=== PATIENT | female | born 1995 | race Caucasian/White ===

== ENCOUNTER 2016-05-13 02:10 | Emergency (ER) | payer BC, OTHER ==
[2016-05-13 02:19] VITALS: PULSE 69; RESP 16; TEMP 98.7
[2016-05-13] MEDS ORDERED: IBUPROFEN 600 MG TAB PO STA (02:29)
--- NOTE | 2016-05-13 02:31 | ED ---
General Adult HPI - General Chief complaint: ENT Stated complaint: Arm/Chest/Back Pain Time Seen by Provider: 05/13/16 02:22 Source: patient, RN notes reviewed Mode of arrival: ambulatory Limitations: no limitations - History of Present Illness Initial comments: Patient 20-year-old female with no significant past medical history, who presents emergency room today with chief complaint of bilateral ear pain over the last 4 days. Does admit that her upper arms up and sore over the last 2 days. She states feels muscular worse with certain movements. She states approximately 2 hours ago began feeling some pain in her upper back and chest area. She can states that these pains again feel muscular to herself. She states they are worse with certain movements and on palpation. She denies any other complaints or symptoms. Patient denies any recent fever, chills, shortness of breath, abdominal pain, nausea or vomiting, numbness or tingling, dysuria or hematuria, constipation or diarrhea, headaches or visual changes, or any other complaints. - Related Data Previous Rx's Medication Instructions Recorded Ibuprofen [Motrin] 600 mg PO Q6HR PRN #30 day 05/13/16 Allergies Allergy/AdvReac Type Severity Reaction Status Date / Time amoxicillin Allergy Rash/Hives Verified 05/13/16 02:20 Review of Systems ROS Statement: Those systems with pertinent positive or pertinent negative responses have been documented in the HPI. ROS Other: All systems not noted in ROS Statement are negative. Past Medical History Past Medical History: No Reported History History of Any Multi-Drug Resistant Organisms: None Reported Past Surgical History: No Surgical Hx Reported Past Psychological History: Anxiety, Depression Smoking Status: Never smoker Past Alcohol Use History: Rare Past Drug Use History: None Reported General Exam - General Exam Comments Initial Comments: General: The patient is awake and alert, in no distress, and does not appear acutely ill. Eye: Pupils are equal, round and reactive to light, extra-ocular movements are intact. No nystagmus. There is normal conjunctiva bilaterally. No signs of icterus. Ears, nose, mouth and throat: There are moist mucous membranes and no oral lesions. Neck: The neck is supple, there is no tenderness or JVD. Cardiovascular: There is a regular rate and rhythm. No murmur, rub or gallop is appreciated. Chest pain reproduced on palpation of the anterior chest wall. Respiratory: Lungs are clear to auscultation, respirations are non-labored, breath sounds are equal. No wheezes, stridor, rales, or rhonchi. Musculoskeletal: Normal ROM, no appearance of thoracic, lumbar spine. No tenderness over the spinous processes. Patient has mild tenderness to the upper back generally on exam. Strength 5/5. Sensation intact. Pulses equal bilaterally 2+. Neurological: A&O x 3. CN II-XII intact, There are no obvious motor or sensory deficits. Coordination appears grossly intact. Speech is normal. Skin: Skin is warm and dry and no rashes or lesions are noted. Psychiatric: Cooperative, appropriate mood & affect, normal judgment. Limitations: no limitations Course Vital Signs 05/13/16 02:15 Temperature 98.7 F Pulse Rate 69 Respiratory 16 Rate Blood Pressure 110/66 O2 Sat by Pulse 97 Oximetry EKG Findings - EKG Comments: EKG Findings:: EKG performed at 0238: Shows sinus bradycardia at 57 bpm. NH interval 164. QRS is 84. QT/QTc 426/414. No acute ST changes. Medical Decision Making - Medical Decision Making Case discussed in detail with attending physician Dr. Smith. Patient reexamined at this time shows no signs of distress. Her labs been reviewed and shows negative influenza. Negative chest x-ray. EKG shows sinus bradycardia otherwise normal EKG. Patient's pain improved after ibuprofen here in the emergency room. Chest pain back pain reproducible on palpation on initial exam is feeling better after ibuprofen. Vitals are stable. At this time patient will be discharged home advised to follow-up family doctor over the next 2 days and continue ibuprofen as needed for pain. Advised return here the emergency room if any symptoms increase or worsen or for any other concerns. - Lab Data Lab Results 05/13/16 Range/Units 02:41 Influenza Type A RNA Not Detected (Not Detectd) Influenza Type B (PCR) Not Detected (Not Detectd) Disposition Clinical Impression: Viral syndrome Disposition: HOME SELF-CARE Condition: Good Instructions: Viral Syndrome (ED) Additional Instructions: Please continue ibuprofen as needed for pain. Please follow-up family doctor over the next 2 days. Please change the emergency room if any symptoms increase or worsen or for any other concerns. Prescriptions: Ibuprofen [Motrin] 600 mg PO Q6HR PRN #30 day PRN Reason: Pain Time of Disposition: 03:31
--- NOTE | 2016-05-13 02:58 | XR ---
EXAMINATION TYPE: XR chest 2V DATE OF EXAM: 05/13/2016 2:51 AM COMPARISON: NONE HISTORY: Cough TECHNIQUE: Frontal and lateral views of the chest are obtained. FINDINGS: Heart and mediastinum are normal. Lungs are clear. Diaphragm is normal. Bony thorax and so ft tissues appear normal. IMPRESSION: Normal chest
[2016-05-13 03:45] VITALS: BP 112/66
== END 2016-05-13 03:44 | disposition home or self-care (01) ==
LOC: EC 02:10
DX: B34.9 Viral infection, unspecified (principal); R00.1 Bradycardia, unspecified
CPT/HCPCS: 71020; 87502; 93005; 99285

== ENCOUNTER 2016-12-23 02:21 | Observation (INO) | payer BC ==
[2016-12-23] MEDS ORDERED: LORazepam 2 MG/ML INJ IV STA (02:43)
[2016-12-23] MEDS ORDERED: SODIUM CHLORIDE 0.9% 1,000 ML IV STA (02:43)
--- NOTE | 2016-12-23 03:04 | ED ---
Seizure HPI - General Chief Complaint: Seizure Stated Complaint: seizure Time Seen by Provider: 12/23/16 02:24 Source: patient, EMS Mode of arrival: EMS Limitations: no limitations - History of Present Illness Initial Comments: 21 years old female his seizure tonight, seizure was witnessed by her boyfriend , boyfriend is a RN he noticed seizure lasted for 30 seconds there was no tonic- clonic, she bit her tongue during the she threw up and she was laying at the time she sees to, no fall, no injury from the seizure. He had some 2 drinks tonight and she also has been trying to taper off her Effexor she is on a small dose of Effexor 37.5 mg. She is no family history of seizures her parents has no history of seizure disorder and her siblings at - Related Data Previous Rx's Medication Instructions Recorded Ibuprofen [Motrin] 600 mg PO Q6HR PRN #30 day 05/13/16 Allergies Allergy/AdvReac Type Severity Reaction Status Date / Time amoxicillin Allergy Rash/Hives Verified 12/23/16 02:38 Iodinated Contrast- Oral and Allergy Anaphylaxis Verified 12/23/16 02:38 IV Dye Review of Systems ROS Statement: Those systems with pertinent positive or pertinent negative responses have been documented in the HPI. ROS Other: All systems not noted in ROS Statement are negative. Past Medical History Past Medical History: No Reported History Additional Past Medical History / Comment(s): Migrans, IBS History of Any Multi-Drug Resistant Organisms: None Reported Past Surgical History: No Surgical Hx Reported Past Psychological History: Anxiety, Depression Smoking Status: Never smoker Past Alcohol Use History: Occasional Past Drug Use History: None Reported General Exam - General Exam Comments Initial Comments: General: The patient is awake and alert, in no distress, and does not appear acutely ill. GCS is 15 Skin: Skin is warm and dry and no rashes or lesions are noted. Eye: Pupils are equal, round and reactive to light, extra-ocular movements are intact; there is normal conjunctiva bilaterally. Ears, nose, mouth and throat: There are moist mucous membranes and she did bite her tongue during today's seizure Neck: The neck is supple, there is no tenderness no focal tenderness noticed over the cervical spine Cardiovascular: There is a regular rate and rhythm. No murmur, rub or gallop is appreciated. Respiratory: To auscultation bilateral, no wheezing no rhonchi no distress respiratory bryant noticed Gastrointestinal: Soft, non-distended, non-tender abdomen without masses or organomegaly noted. There is no rebound or guarding present. Bowel sounds are unremarkable. Back: There is no tenderness to palpation in the midline. There is no obvious deformity. Musculoskeletal: Normal ROM, no tenderness, There is no pedal edema. There is no calf tenderness or swelling. No cords were appreciated. Neurological: CN II-XII intact, Cranial nerves III through XII are intact. There are no obvious motor or sensory deficits. Coordination appears grossly intact. Speech is normal. Psychiatric: Cooperative, appropriate mood & affect, normal judgment. Limitations: no limitations Course Vital Signs 12/23/16 12/23/16 02:22 03:25 Temperature 97 F L Pulse Rate 78 85 Respiratory 16 16 Rate Blood Pressure 101/65 97/60 O2 Sat by Pulse 100 97 Oximetry EKG is normal sinus rhythm with a ventricular rate of 84 GA interval is 150 QRS duration is 86 QT/QTc is 392/463 review of this EKG did not reveal any ST elevation or ST depression She is reassessed at term 4:15 AM, her CBC, compressive metabolic panel are reviewed and noticed it CO2 is on the lower side consistent with metabolic acidosis beta-hCG is negative urine drug screen is unremarkable and head CT so unremarkable. Considering Past first seizure she be admitted to the hospital neurological healthcare market consultant and will correct the metabolic acidosis with the fluids Medical Decision Making - Lab Data Result diagrams: 12/23/16 02:35 12/23/16 02:35 Lab Results 12/23/16 12/23/16 12/23/16 Range/Units 02:35 02:35 02:50 WBC 6.1 (3.8-10.6) k/uL RBC 4.65 (3.80-5.40) m/uL Hgb 13.8 (11.4-16.0) gm/dL Hct 41.1 (34.0-46.0) % MCV 88.5 (80.0-100.0) fL MCH 29.7 (25.0-35.0) pg MCHC 33.6 (31.0-37.0) g/dL RDW 12.4 (11.5-15.5) % Plt Count 307 (150-450) k/uL Neutrophils % 58 % Lymphocytes % 29 % Monocytes % 6 % Eosinophils % 3 % Basophils % 1 % Neutrophils # 3.6 (1.3-7.7) k/uL Lymphocytes # 1.8 (1.0-4.8) k/uL Monocytes # 0.4 (0-1.0) k/uL Eosinophils # 0.2 (0-0.7) k/uL Basophils # 0.0 (0-0.2) k/uL Sodium 141 (137-145) mmol/L Potassium 3.9 (3.5-5.1) mmol/L Chloride 108 H (98-107) mmol/L Carbon Dioxide 16 L (22-30) mmol/L Anion Gap 17 mmol/L BUN 12 (7-17) mg/dL Creatinine 0.60 (0.52-1.04) mg/dL Est GFR (MDRD) Af Amer >60 (>60 ml/min/1.73 sqM) Est GFR (MDRD) Non-Af >60 (>60 ml/min/1.73 sqM) Glucose 78 (74-99) mg/dL Calcium 9.3 (8.4-10.2) mg/dL Total Bilirubin 0.3 (0.2-1.3) mg/dL AST 25 (14-36) U/L ALT 27 (9-52) U/L Alkaline Phosphatase 84 (38-126) U/L Total Protein 7.7 (6.3-8.2) g/dL Albumin 4.6 (3.5-5.0) g/dL Urine Color Yellow Urine Appearance Clear (Clear) Urine pH 5.5 (5.0-8.0) Ur Specific [place] 1.018 (1.001-1.035) Urine Protein 1+ H (Negative) Urine Glucose (UA) Negative (Negative) Urine Ketones 1+ H (Negative) Urine Blood Trace H (Negative) Urine Nitrite Negative (Negative) Urine Bilirubin Negative (Negative) Urine Urobilinogen <2.0 (<2.0) mg/dL Ur Leukocyte Esterase Negative (Negative) Urine RBC 1 (0-5) /hpf Urine WBC 2 (0-5) /hpf Urine Bacteria Occasional H (None) /hpf Urine Mucus Rare H (None) /hpf Urine HCG, Qual (Not Detectd) Urine Opiates Screen Not Detected (NotDetected) Ur Oxycodone Screen Not Detected (NotDetected) Urine Methadone Screen Not Detected (NotDetected) Ur Propoxyphene Screen Not Detected (NotDetected) Ur Barbiturates Screen Not Detected (NotDetected) U Tricyclic Antidepress Not Detected (NotDetected) Ur Phencyclidine Scrn Not Detected (NotDetected) Ur Amphetamines Screen Not Detected (NotDetected) U Methamphetamines Scrn Not Detected (NotDetected) U Benzodiazepines Scrn Not Detected (NotDetected) Urine Cocaine Screen Not Detected (NotDetected) U Marijuana (THC) Screen Not Detected (NotDetected) 12/23/16 Range/Units 02:50 WBC (3.8-10.6) k/uL RBC (3.80-5.40) m/uL Hgb (11.4-16.0) gm/dL Hct (34.0-46.0) % MCV (80.0-100.0) fL MCH (25.0-35.0) pg MCHC (31.0-37.0) g/dL RDW (11.5-15.5) % Plt Count (150-450) k/uL Neutrophils % % Lymphocytes % % Monocytes % % Eosinophils % % Basophils % % Neutrophils # (1.3-7.7) k/uL Lymphocytes # (1.0-4.8) k/uL Monocytes # (0-1.0) k/uL Eosinophils # (0-0.7) k/uL Basophils # (0-0.2) k/uL Sodium (137-145) mmol/L Potassium (3.5-5.1) mmol/L Chloride (98-107) mmol/L Carbon Dioxide (22-30) mmol/L Anion Gap mmol/L BUN (7-17) mg/dL Creatinine (0.52-1.04) mg/dL Est GFR (MDRD) Af Amer (>60 ml/min/1.73 sqM) Est GFR (MDRD) Non-Af (>60 ml/min/1.73 sqM) Glucose (74-99) mg/dL Calcium (8.4-10.2) mg/dL Total Bilirubin (0.2-1.3) mg/dL AST (14-36) U/L ALT (9-52) U/L Alkaline Phosphatase (38-126) U/L Total Protein (6.3-8.2) g/dL Albumin (3.5-5.0) g/dL Urine Color Urine Appearance (Clear) Urine pH (5.0-8.0) Ur Specific [place] (1.001-1.035) Urine Protein (Negative) Urine Glucose (UA) (Negative) Urine Ketones (Negative) Urine Blood (Negative) Urine Nitrite (Negative) Urine Bilirubin (Negative) Urine Urobilinogen (<2.0) mg/dL Ur Leukocyte Esterase (Negative) Urine RBC (0-5) /hpf Urine WBC (0-5) /hpf Urine Bacteria (None) /hpf Urine Mucus (None) /hpf Urine HCG, Qual Not Detected (Not Detectd) Urine Opiates Screen (NotDetected) Ur Oxycodone Screen (NotDetected) Urine Methadone Screen (NotDetected) Ur Propoxyphene Screen (NotDetected) Ur Barbiturates Screen (NotDetected) U Tricyclic Antidepress (NotDetected) Ur Phencyclidine Scrn (NotDetected) Ur Amphetamines Screen (NotDetected) U Methamphetamines Scrn (NotDetected) U Benzodiazepines Scrn (NotDetected) Urine Cocaine Screen (NotDetected) U Marijuana (THC) Screen (NotDetected) Disposition Clinical Impression: New onset seizure, Metabolic acidosis Disposition: ADMITTED IP TO THIS [facility] Condition: Good Referrals: Luis Suarez MD [Primary Care Provider] - 1-2 days
[2016-12-23 03:10] LABS: Appearance,Urine Clear (Clear); Bacteria,Urine Occasional /hpf; Bilirubin,Urine Negative (Negative); Glucose,Urine (UA) Negative (Negative); Ketones,Urine 1+ (Negative); Leukocyte Esterase,Urine Negative (Negative); Mucus,Urine Rare /hpf; Nitrite,Urine Negative (Negative); PH, Urine 5.5 (5.0-8.0); Particle Count 2155; Protein,Urine 1+ (Negative); RBC,Urine 1 /hpf (0-5); Specific Gravity,Urine 1.018 (1.001-1.035); UA Billing (MACRO vs. MICRO) MICRO; Urobilinogen,Urine <2.0 mg/dL (<2.0); WBC,Urine 2 /hpf (0-5)
[2016-12-23 03:10] LABS: Basophils % (A) 1 %; CH 29.8; CHCM 33.8; Eosinophils # (A) 0.2 k/uL (0-0.7); Eosinophils % (A) 3 %; HCT 41.1 % (34.0-46.0); HDW 2.43; HGB 13.8 gm/dL (11.4-16.0); Luc # (Auto) 0.19; Luc % (Auto) 3; Lymphocytes # (A) 1.8 k/uL (1.0-4.8); Lymphocytes % (A) 29 %; MCH 29.7 pg (25.0-35.0); MCHC 33.6 g/dL (31.0-37.0); MCV 88.5 fL (80.0-100.0); Monocytes # (A) 0.4 k/uL (0-1.0); Monocytes % (A) 6 %; Neutrophils # (A) 3.6 k/uL (1.3-7.7); Neutrophils % (A) 58 %; RBC 4.65 m/uL (3.80-5.40); RDW 12.4 % (11.5-15.5); WBC 6.1 k/uL (3.8-10.6); WBC (Perox) 6.45
[2016-12-23 03:26] LABS: ALT 27 U/L (9-52); AST 25 U/L (14-36); Alkaline Phosphatase 84 U/L (38-126); Anion Gap 17 mmol/L; Blood Urea Nitrogen 12 mg/dL (7-17); Calcium 9.3 mg/dL (8.4-10.2); Carbon Dioxide 16 mmol/L (22-30); Chloride 108 mmol/L (98-107); Glucose 78 mg/dL (74-99); Non-African American GFR(MDRD) >60 (>60 ml/min/1.73 sqM); Potassium 3.9 mmol/L (3.5-5.1); Sodium 141 mmol/L (137-145); Total Bilirubin 0.3 mg/dL (0.2-1.3); Total Protein 7.7 g/dL (6.3-8.2)
--- NOTE | 2016-12-23 03:50 | CT ---
EXAM: CT Head Without Intravenous Contrast CLINICAL HISTORY: Reason: seizure activity TECHNIQUE: Axial computed tomography images of the head/brain without intravenous contrast. CTDI is 60.3 mGy and DLP is 1162.8 mGy-cm. This CT exam was performed using one or more of the following dose reduction techniques: automated exposure control, adjustment of the mA and/or kV according to patient size, and/or use of iterative reconstruction technique. Coronal and sagittal reformatted images were created and reviewed. COMPARISON: No relevant prior studies available. FINDINGS: Brain: Unremarkable. No hemorrhage. No significant white matter disease. No edema. Ventricles: Unremarkable. No ventriculomegaly. Bones/joints: Unremarkable. No acute fracture. Soft tissues: Unremarkable. Sinuses: Mild mucosal thickening of ethmoid air cells and maxillary sinuses. Mastoid air cells: Unremarkable as visualized. No mastoid effusion. IMPRESSION: No acute findings.
[2016-12-23] MEDS ORDERED: SODIUM CHLORIDE 0.9% 1,000 ML IV ONE (04:19)
[2016-12-23] MEDS ORDERED: NALOXONE 0.4 MG/ML 1 ML VIAL IV PRN (04:21)
[2016-12-23] MEDS ORDERED: ACETAMINOPHEN TAB 325 MG TAB PO PRN (04:21)
[2016-12-23] MEDS ORDERED: LORazepam 2 MG/ML INJ IV PRN (04:27)
[2016-12-23 06:26] VITALS: BMI 19.5
[2016-12-23] MEDS: SODIUM CHLORIDE 0.9% 1,000 ML IV SCH ×2 (07:45→14:35)
[2016-12-23] MEDS ORDERED: SUMAtriptan SUCCINATE 50 MG TAB PO PRN (08:15)
[2016-12-23] MEDS: VENLAFAXINE HCL ER 37.5 MG CAP PO SCH (08:44)
[2016-12-23] MEDS: ENOXAPARIN 40 MG/0.4 ML SYRINGE SQ SCH (08:53)
--- NOTE | 2016-12-23 17:09 | HP ---
HISTORY AND PHYSICAL DATE OF ADMISSION: 12/23/2016 PRESENT COMPLAINT: Seizures. HISTORY OF PRESENTING COMPLAINT: This is a pleasant 21-year-old patient of Dr. Suarez whose boyfriend is a nurse up here in the hospital. The patient was sleeping on a sofa when she got up, was startled, and then was noted to have a full-blown tonic-clonic seizure. This was the first time patient has had an episode like this. No prior seizure activity reported. No head injury. Other chronic stable medical conditions include migraine, irritable bowel syndrome, anxiety, depression. Patient has been on Effexor by Dr. Suarez and has been slowly tapering off the dose, taking it every other day. The patient does describe episodes about twice a week when she goes to work and it even happens at home where she will feel that she has suddenly become fixed, unable to move; starts sweating; she feels as if she is dreaming. These episodes come and go. Patient's anxiety and depression are otherwise actually quite improving. REVIEW OF SYSTEMS: CONSTITUTIONAL: None. HEENT: None. RESPIRATORY: None. CARDIOVASCULAR: None. GASTROINTESTINAL: None. GENITOURINARY: None. MUSCULOSKELETAL: None. DERMATOLOGICAL: None. HEMATOLOGICAL: None. LYMPHATICS: None. PSYCHIATRY: Anxiety, depression, improving. NEUROLOGICAL: As above. PAST MEDICAL HISTORY: 1. Migraines. 2. Irritable bowel syndrome. 3. Anxiety. 4. Depression. PAST SURGICAL HISTORY: [place] teeth removed. SOCIAL HISTORY: Patient lives with her boyfriend Garrick. Does not smoke. Alcohol occasionally. 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 FAMILY HISTORY: Rheumatoid arthritis, bladder cancer. HOME MEDICATIONS: 1. Imitrex 50 mg q.2 p.r.n. 2. Motrin 600 mg q.6 p.r.n. 3. Effexor XR 37.5 mg p.o. every other day. She is trying to wean off. ALLERGIES: 1. AMOXICILLIN. 2. IV CONTRAST DYE. PHYSICAL EXAMINATION: Temperature 98, pulse 66, respiration 18, blood pressure 90/58, pulse ox 97% on room air. GENERAL APPEARANCE: Average build. Lying in bed, tired-appearing. EYES: Pupils equal. Conjunctivae normal. HEENT: Oral cavity normal. NECK: JVD not raised. Mass not palpable. RESPIRATORY: Effort normal. Lungs are clear. CARDIOVASCULAR: First and second sounds normal. No edema. ABDOMEN: Soft, nontender. Liver and spleen not palpable. LYMPHATIC: No lymph node palpable in neck or axillae. PSYCHIATRY: Alert and oriented x3. Mood and affect normal. NEUROLOGICAL: Pupils equal. Cranial nerves grossly intact. Power and sensation grossly intact. INVESTIGATIONS: White count 6.1, hemoglobin 13.8, potassium 3.9. Urine drug screen negative. EKG shows normal sinus rhythm. CT scan of the brain shows nil acute. ASSESSMENT: This patient presented with a witnessed tonic-clonic seizure. She has also been having episodes where she becomes stiff and has day-dreaming; happens about twice a week. These well could be seizure episodes. Also the patient is being weaned off Effexor, and that could be contributing to the whole picture. PLAN: Will consult Psychiatry to see if Effexor can totally be stopped. Neurology was also consulted. The patient is having neuro checks, seizure precautions. Will also get an EEG ordered. Care was discussed at length with the patient. MMLIVEL / IJN: [id number] /
[2016-12-23] MEDS ORDERED: FOLIC ACID 1 MG TAB PO SCH (22:13)
--- NOTE | 2016-12-23 22:24 | P.CNNES ---
History of Present Illness Consult date: 12/23/16 History of Present Illness: The patient is a 21-year-old woman who reports that yesterday evening around 1 AM she had a generalized seizure that was witnessed. Apparently she became combative and vomited afterwards. She is brought to the emergency room admitted to the hospital with seizure.'s that for the past 4 years she's been having episodes twice a week where she sees of her vision like a dj vu and she is unable to talk or communicate during the episode which can last from 2 minutes to 45 minutes. If she has an episode she has to stop what she is doing. She states she has not had one while driving but on one occasion she was about to have one and she had to parts puller. She states that recently these episodes are becoming more frequent. She gives a history of head concussion 3 years ago when she was hit by a soccer ball and she had loss of consciousness briefly. The patient has been on Effexor for the last few months for treatment for possible cataplexy. Review of Systems Constitutional: Denies chills, Denies fever Eyes: denies blurred vision, denies pain Ears, nose, mouth and throat: Denies headache, Denies sore throat Cardiovascular: Denies chest pain, Denies shortness of breath Respiratory: Denies cough Neurological: Denies numbness, Denies weakness Psychiatric: Denies anxiety, Denies depression Past Medical History Past Medical History: No Reported History Additional Past Medical History / Comment(s): Migrans, IBS, anxiety, depression History of Any Multi-Drug Resistant Organisms: None Reported Past Surgical History: No Surgical Hx Reported Additional Past Surgical History / Comment(s): wisdom teeth removal 12/2016 Past Anesthesia/Blood Transfusion Reactions: No Reported Reaction Past Psychological History: Anxiety, Depression Smoking Status: Never smoker Past Alcohol Use History: Occasional Past Drug Use History: None Reported - Past Family History Mother Family Medical History: Cancer, Rheumatoid Arthritis (RA) Additional Family Medical History / Comment(s): bladder cancer 2016 Sister(s) Family Medical History: Thyroid Disorder Father Family Medical History: Chest Pain / Angina, Coronary Artery Disease (CAD) Medications and Allergies Home Medications Medication Instructions Recorded Confirmed Type Ibuprofen [Motrin] 600 mg PO Q6HR PRN #30 day 05/13/16 12/23/16 Rx SUMAtriptan SUCCINATE [Imitrex] 50 mg PO Q2H PRN MDD 3 TABS DAILY 12/23/1612/23 History Venlafaxine HCl [Effexor XR] 37.5 mg PO DAILY 12/23/16 12/23/16 History Allergies Allergy/AdvReac Type Severity Reaction Status Date / Time amoxicillin Allergy Rash/Hives Verified 12/23/16 06:54 Iodinated Contrast- Oral and Allergy Anaphylaxis Verified 12/23/16 06:54 IV Dye Physical Examination - Vital Signs Vital Signs: Vital Signs Temp Pulse Pulse Resp BP BP Pulse Ox 12/23/16 20:00 98.5 F 74 16 106/58 99 12/23/16 16:00 98.4 F 68 16 98/66 98 12/23/16 11:54 98.0 F 66 18 90/58 97 12/23/16 11:53 69 20 12/23/16 08:00 98.5 F 69 20 101/59 95 12/23/16 06:00 97.6 F 91 16 105/53 96 12/23/16 05:12 97.9 F 75 18 96/53 100 12/23/16 03:25 85 16 97/60 97 12/23/16 02:22 97 F L 78 16 101/65 100 Intake and Output 12/23/16 12/23/16 12/23/16 06:59 14:59 22:59 Intake Total 50 600 Balance 50 600 Intake: Intake, IV Titration 50 600 Amount Sodium Chloride 0.9% 1, 50 600 000 ml @ 100 mls/hr IV . Q10H [facility] Rx#:[id number] Other: # Voids 3 Weight 45.359 kg - Constitutional General appearance: average body habitus - EENT EENT: PERRL - Respiratory Respiratory: lungs clear - Cardiovascular Cardiovascular: regular rate - Neurologic Mental status she was awake alert and oriented there was no aphasia or dysarthria Cranial nerve examination: PERRL, EOMI, VFF, face symmetric, tongue midline Speech examination: intact Detailed motor examination: grossly full strength in all extremities Reflex and gait examination: normal gait - Psychiatric Psychiatric: mood/affect appropriate Results - Laboratory Findings CBC and BMP: 12/23/16 02:35 12/23/16 02:35 Abnormal Lab Findings: Abnormal Labs 12/23/16 12/23/16 02:35 02:50 Chloride 108 H Carbon Dioxide 16 L Urine Protein 1+ H Urine Ketones 1+ H Urine Blood Trace H Urine Bacteria Occasional H Urine Mucus Rare H Assessment and Plan (1) New onset seizure Status: Acute Code(s): R56.9 - UNSPECIFIED CONVULSIONS Plan: The patient is a 21-year-old woman with history of episodes of lapses of awareness. She had a witnessed generalized seizure at 1 AM today. The patient is admitted with new onset seizure. Recommend starting patient on anticonvulsant medication and getting an EEG. She was also have an MRI scan of the brain. She did have a head concussion a few years ago. She has been made aware of the [place] law regarding driving and seizures and told that she cannot operate a motorized vehicle until she is spell free for 6 months
[2016-12-24] MEDS: SODIUM CHLORIDE 0.9% 1,000 ML IV SCH ×2 (01:50→12:44)
[2016-12-24 06:57] LABS: Basophils % (A) 1 %; CH 29.9; CHCM 32.4; Eosinophils # (A) 0.2 k/uL (0-0.7); Eosinophils % (A) 3 %; HCT 39.1 % (34.0-46.0); HDW 2.38; HGB 12.7 gm/dL (11.4-16.0); Luc # (Auto) 0.11; Luc % (Auto) 2; Lymphocytes # (A) 2.1 k/uL (1.0-4.8); Lymphocytes % (A) 32 %; MCHC 32.4 g/dL (31.0-37.0); MCV 92.7 fL (80.0-100.0); Mean Platelet Volume 6.9; Monocytes # (A) 0.3 k/uL (0-1.0); Monocytes % (A) 5 %; Neutrophils # (A) 3.7 k/uL (1.3-7.7); Neutrophils % (A) 58 %; RBC 4.22 m/uL (3.80-5.40); RDW 12.5 % (11.5-15.5); WBC 6.4 k/uL (3.8-10.6); WBC (Perox) 6.55
[2016-12-24 07:12] LABS: ALT 26 U/L (9-52); AST 23 U/L (14-36); Alkaline Phosphatase 64 U/L (38-126); Anion Gap 11 mmol/L; Blood Urea Nitrogen 8 mg/dL (7-17); Carbon Dioxide 21 mmol/L (22-30); Chloride 109 mmol/L (98-107); Glucose 74 mg/dL (74-99); Non-African American GFR(MDRD) >60 (>60 ml/min/1.73 sqM); Sodium 141 mmol/L (137-145); Total Bilirubin 0.5 mg/dL (0.2-1.3); Total Protein 6.7 g/dL (6.3-8.2)
[2016-12-24] MEDS: VENLAFAXINE HCL ER 37.5 MG CAP PO SCH (07:59)
[2016-12-24] MEDS: ENOXAPARIN 40 MG/0.4 ML SYRINGE SQ SCH (07:59)
[2016-12-24] MEDS: levETIRAcetam 500 MG TAB PO SCH ×2 (07:59→17:17)
[2016-12-24 08:38] VITALS: BP 92/56; PULSE 73; RESP 18; TEMP 97.3
--- NOTE | 2016-12-24 09:23 | MR ---
EXAMINATION TYPE: MR brain wo con DATE OF EXAM: 12/24/2016 COMPARISON: 12/23/2016 CT brain HISTORY: New onset seizure TECHNIQUE: Multiplanar, multisequence images of the brain and brainstem is performed without intravenous contras t. FINDINGS: Diffusion weighted images demonstrate no evidence of a recent infarct or other diffusion ab normality. There is no extra-axial fluid collection or significant white matter signal abnormality. The ventricular system and cisternal spaces are normal in size and appearance. The brain volume is age appropriate. Mesial temporal lobes are symmetric in morphology and signal intensity. Midline structures demonstrate normal morphology. The craniocervical junction appears within normal limits. The dural venous sinuses appear patent. The globes are symmetric. Circumferential mucosal thi ckening is seen within the right maxillary sinus and mild mucosal thickening within the left maxillar y sinus. [id number]-[id number] mucosal thickening is present within the ethmoid sinuses. Sphenoid and fron vidal sinuses are well aerated. Mastoid air cells are also well-aerated. IMPRESSION: 1. No evidence of infarct, mass effect, or intracranial hemorrhage. 2. Moderate paranasal sinus disease most pronounced within the right maxillary and ethmoid sinuses.
[2016-12-24] MEDS ORDERED: FOLIC ACID 1 MG TAB PO SCH (12:00)
--- NOTE | 2016-12-24 14:13 | P.CN ---
Psychiatric Consult - . Consult date: 12/24/16 Consult:: PSYCHIATRY CONSULT: Patient interviewed briefly with mother and father present. Patient;s parents were alarmed that Psychiatry had been consulted. The family was informed that Psychiatry was consulted for anxiety, which both patient and parents attribute to her seizure disorder. Given patient's lack of psychiatric history I concur. After much discussion and review of the medical record, and discussion with staff it further noted that recommendations regarding if patient can stop taking Effexor 37.5-mg. Her reason for being put on Effexor was her OP physician thought she was having episodes of "cataplexy." When asked about medication compliance, patient has been taking Effexor every other day or three times a week. She has not been taking in daily "for a while." She denies SI/HI/ AVH. Patient refused full consult, she is not a threat to self or others, d/c Effexor ~ Darien Estrada DO Assessment and Plan (1) New onset seizure Status: Acute
--- NOTE | 2016-12-25 07:59 | DS ---
DISCHARGE SUMMARY DATE OF ADMISSION: December 23, 2016. DATE OF DISCHARGE: December 24, 2016. FINAL DIAGNOSES: Generalized tonic-clonic seizures. CONSULTATION: Dr. Yuli Stephens of Neurology, Dr. Babb from psychiatry. HOSPITAL COURSE: This patient presented with a witnessed tonic-clonic seizure. The patient has been having small episodes before where she freezes they could be seizure episodes. MRI of the brain did not show any neuro deficits. The patient is started on Keppra. Patient advised against smoking. The patient advised against driving for at least 6 months. Twin sister was present. EXAMINATION: Lungs are clear. CARDIOVASCULAR: First and second sounds are normal. Psych AO x3. DISCHARGE MEDICATIONS: 1. Motrin 600 mg q.6h p.r.n. 2. Imitrex 50 mg q.2h p.r.n. 3. Folic acid 1 mg a day at noon. 4. Keppra 500 mg p.o. q.12. Follow with Dr. Suarez on December 31, 2016. Follow up with Dr. Stephens on February 15, 2017. Additionally , patient was seen by Dr. Babb from Psychiatry. This consult was done to see if we could stop patient's Effexor which has now been discontinued. MMODL / IJN: [id number] /
--- NOTE | 2017-03-14 21:49 | EEG ---
ELECTROENCEPHALOGRAM REPORT EEG OBJECTIVE: This is a 19 channel digitally acquired EEG in the evaluation of a 21 -year-old female with new onset seizures, for possible epileptiform activity. This is a sleep deprived EEG. EEG FINDINGS: Resting alert record is characterized as 9 to 9 1/2 Hz posterior dominant background activity which is well developed form and sustain of moderate voltage 20 to 30 microvolts remitted into the central head regions bilaterally. Bifrontal low voltage fast activity predominance. There were no gross hemispheric asymmetries noted. There are no areas of focal slow wave. Photo stimulus showed a symmetric and adequate driving response. The background attenuates symmetrically to eye opening. Hyperventilation, did not add any new features to the record. As the record progressed, the patient's background activity attenuates with the appearance of symmetric vertex sharp waves. Stage II sleep is noted intermittently. K-complexes unremarkable. Alerting response also unremarkable. No definite epileptiform activity was noted. IMPRESSION: Unremarkable sleep EEG with alerting response. No evidence for epileptiform activity. MMODL / IJN: [id number] /
== END 2016-12-24 18:42 | disposition home or self-care (01) ==
LOC: EC 02:21 → INTOOBSV 04:21 → 6SEL 04:21
PROVIDERS: ADMIT Hospitalist; ATTEND Hospitalist
DX: G40.409 Other generalized epilepsy and epileptic syndromes, not intractable, without status epilepticus (principal); E87.2 Acidosis; G43.909 Migraine, unspecified, not intractable, without status migrainosus; T43.216A Underdosing of selective serotonin and norepinephrine reuptake inhibitors, initial encounter; Z91.128 Patient's intentional underdosing of medication regimen for other reason; Z87.820 Personal history of traumatic brain injury; F32.9 Major depressive disorder, single episode, unspecified; F41.9 Anxiety disorder, unspecified; Z88.0 Allergy status to penicillin; Z91.041 Radiographic dye allergy status
CPT/HCPCS: 99285 ×2; 96360 ×2; 96361 ×4; 96372; 36415; 94760; 95819; 93005; 80053 ×2; 85025 ×2; 81001; 81025; 80306; 70450; 70551; G0378 ×2; J1650